=== PATIENT | male | born 1935 | race Caucasian/White ===

== ENCOUNTER → 2019-01-24 | Outpatient (CLI) | payer MEDICARE, OTHER ==
--- NOTE | 2019-01-24 13:26 | Diagnostic Imaging Report ---
PROCEDURE: CT abdomen and pelvis without contrast. TECHNIQUE: Multiple contiguous axial images were obtained through the abdomen and pelvis without the use of intravenous contrast. Auto Exposure Controls were utilized during the CT exam to meet ALARA standards for radiation dose reduction. DATE: January 24, 2019. COMPARISON: None. INDICATION: 83-year-old male, right lower quadrant pain since last . FINDINGS: There are limitations for evaluation of the abdominal organs, neoplastic processes, abscess, and limited evaluation of the vasculature relating to the lack of intravenous contrast. There are minimal linear opacities in the lung bases which may relate to minimal scarring. The heart is not enlarged. There is no pericardial effusion. The liver is normal in size and contour. There is a low-attenuation lesion in the left lobe of the liver on axial image 11 which measures 2.7 x 1.4 cm in size. Internal attenuation is measured at 10 Hounsfield units. This is consistent with a benign hepatic cyst. There is a gallstone. The gallbladder is mildly distended. There are no findings to specifically suggest acute cholecystitis. There is no intrahepatic or extrahepatic bile duct dilation. The main pancreatic duct is not abnormally dilated. Unremarkable noncontrast appearance of the pancreatic parenchyma. The spleen is normal in size. The adrenal glands are unremarkable. There is a hyperdense right renal lesion on axial image 32 which measures 7 mm in size. This is too small to characterize. Internal attenuation is measured at 60 Hounsfield units. There is a 6 mm low attenuation in the left kidney on axial image 40 too small to characterize. There is an 8 mm lesion in the left kidney on axial image 31 too small to characterize. The urinary collecting systems are not distended. There is no visualized renal or ureteral stone. There is significantly limited evaluation of the pelvis given prominent streak artifact associated with bilateral hip prostheses. The urinary bladder is not well evaluated. There is diverticulosis without evidence of acute diverticulitis. The appendix is not well seen. There are no secondary findings to suggest acute appendicitis. There is no free intraperitoneal air, drainable fluid collection, or identified free pelvic fluid. There is a small fat-containing paraumbilical hernia. There are atherosclerotic calcifications. There is no identified abnormally enlarged lymph node in the abdomen or pelvis which meets CT size criteria for adenopathy. 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 There are bilateral sacroiliac degenerative changes. There are multilevel degenerative changes of the spine. There is no identified acute bony abnormality. IMPRESSION: CT ABDOMEN AND PELVIS. 1. No identified acute abnormality in the abdomen or pelvis. 2. Cholelithiasis without evidence of acute cholecystitis. 3. Incidental findings as noted above. Dictated by: Dictated on workstation # [id number]
== END ==
LOC: RAD 11:59
PROVIDERS: ATTEND Pediatrics
DX: K80.20 Calculus of gallbladder without cholecystitis without obstruction (principal); K76.9 Liver disease, unspecified; K82.8 Other specified diseases of gallbladder; N28.89 Other specified disorders of kidney and ureter; K57.90 Diverticulosis of intestine, part unspecified, without perforation or abscess without bleeding; K42.9 Umbilical hernia without obstruction or gangrene; I70.90 Unspecified atherosclerosis; M53.3 Sacrococcygeal disorders, not elsewhere classified; Z96.643 Presence of artificial hip joint, bilateral
CPT/HCPCS: 36415; 74176; 82565